=== PATIENT | male | born 1945 | race Caucasian/White ===

== ENCOUNTER → 2024-02-24 | Outpatient (CLI) | payer MEDICARE, OTHER | LOC: MHCPAIN 14:40 | DX: M43.16 Spondylolisthesis, lumbar region (principal); M54.50 Low back pain, unspecified; I10 Essential (primary) hypertension; E03.9 Hypothyroidism, unspecified | CPT/HCPCS: G0463 ==

== ENCOUNTER → 2024-03-03 | Outpatient (CLI) | payer MEDICARE, OTHER ==
[~2024-03-03] MED LIST: Iohexol 300 - 10 ML VIAL ONE; Lidocaine PF 2% (20 MG/ML) 2 ML VIAL ONE
== END ==
LOC: MHCPAIN 08:08
DX: M54.16 Radiculopathy, lumbar region (principal); M54.50 Low back pain, unspecified
CPT/HCPCS: J1100; Q9967

== ENCOUNTER → 2024-03-16 | Outpatient (CLI) | payer MEDICARE, OTHER | LOC: MHCPAIN 12:27 | DX: M48.062 Spinal stenosis, lumbar region with neurogenic claudication (principal); M43.16 Spondylolisthesis, lumbar region | CPT/HCPCS: G0463 ==

== ENCOUNTER → 2024-04-19 | Outpatient (CLI) | payer MEDICARE, OTHER | LOC: MHCPAIN 12:24 | DX: M48.062 Spinal stenosis, lumbar region with neurogenic claudication (principal); M43.16 Spondylolisthesis, lumbar region; M54.50 Low back pain, unspecified; I10 Essential (primary) hypertension; E03.9 Hypothyroidism, unspecified | CPT/HCPCS: G0463 ==

== ENCOUNTER → 2024-04-19 | Outpatient (CLI) | payer MEDICARE, OTHER ==
[2024-04-19 13:31] LABS: HEMATOCRIT 43.3 % (42.0-52.0); MEAN CELL VOLUME 93 fl (80.0-100.0); MEAN CORPUSCULAR HEMOGLOBIN 32 pg (27-31); MEAN CORPUSCULAR HGB CONC 35 g/dl (33.0-37.0); MEAN PLATELET VOLUME 10.7 fl (7.4-10.4); PLATELET COUNT 163 K/mm3 (130-400); RED BLOOD COUNT 4.65 M/mm3 (4.20-5.60); REDCELL DISTRIBUTION WIDTH-CV 13.1 % (11.5-14.5)
[2024-04-19 13:38] LABS: INR 1.1 (0.8-3.0); PROTHROMBIN TIME 12.3 SECONDS (9.7-12.8)
[2024-04-19 13:41] LABS: PARTIAL THROMBOPLASTIN TIME 32.5 SECONDS (26.0-37.0)
== END ==
LOC: COL.LAB 13:03
PROVIDERS: Physician Assistant
DX: M48.062 Spinal stenosis, lumbar region with neurogenic claudication (principal)

== ENCOUNTER → 2024-04-28 | Outpatient (CLI) | payer MEDICARE, OTHER ==
[~2024-04-28] MED LIST changes: +Atropine 1 MG/10 ML SYRINGE IV ONE; +Glycopyrrolate 0.2 MG/ML 1 ML VIAL ONE; -Iohexol 300 - 10 ML VIAL ONE; +Lidocaine PF 1% (10 MG/ML) 5 ML VIAL ONE; -Lidocaine PF 2% (20 MG/ML) 2 ML VIAL ONE; +Midazolam 2 MG/2 ML VIAL ONE; +NS 250 ML IV ONE; +Phenylephrine 10 MG/ML VIAL ONE; +Water For Injection,Sterile 20 ML IV ONE; +ceFAZolin 2 G VIAL IV ONE; +ePHEDrine 50 MG/10 ML VIAL IV ONE; +fentaNYL 50 MCG/ML 2 ML VIAL ONE
== END ==
LOC: MHCPAIN 12:44
DX: M48.062 Spinal stenosis, lumbar region with neurogenic claudication (principal); Z00.6 Encounter for examination for normal comparison and control in clinical research program
CPT/HCPCS: J0461; J0688; J2250; J2371; J3010; J7050

== ENCOUNTER → 2024-05-06 | Outpatient (CLI) | payer MEDICARE, OTHER | LOC: MHCPAIN 10:48 | DX: M43.16 Spondylolisthesis, lumbar region (principal); M48.062 Spinal stenosis, lumbar region with neurogenic claudication | CPT/HCPCS: G0463 ==